=== PATIENT | male | born 1985 | race Caucasian/White ===

== ENCOUNTER 2020-04-11 07:12 | Emergency (ER) | payer SELFPAY ==
[~2020-04-11] VITALS: Ht 182.9 cm; Wt 129.5 kg
[2020-04-11 07:12] VITALS: BP 168/83
[2020-04-11] MEDS ORDERED: DICL75TA2 PO (07:26)
[2020-04-11] MEDS ORDERED: CYCL10TA9 PO (07:26)
--- NOTE | 2020-04-11 07:26 | ED General ---
General Stated Complaint: LT HAND/SHOULDER PAIN Source of Information: Patient, EMS Notes Reviewed, RN/, RN Notes Reviewed History of Present Illness Date Seen by Provider: Apr 11, 2020 Time Seen by Provider: 07:10 Initial Comments This patient is a 34-year-old male presents to the emergency department complaining of pain running down the posterior portion of his left arm and burning to his left. Patient states he has chronic issues his neck and arm. 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 Patient states he does hold a lot left hand. Patient has significant tightness of the trapezius muscles the left side and patient states with pressure trigger point appears to relieve some of the tension. Did discuss at length with patient about chronic conditions. Hand radiculopathy. Patient states understanding. Patient be given prescription for nonsteroidal pain medication Flexeril. Patient instructed to follow up with his primary care physician. May benefit from an MRI outpatient. Timing/Duration: 2-3 Days Severity: Mild Associated Systoms: Denies Symptoms; No Chest Pain, No Cough, No Diaphoresis, No Fever/Chills, No Headaches, No Loss of Appetite, No Malaise, No Nausea/Vomiting, No Rash, No Seizure, No Shortness of Air, No Syncope, No Weakness, No Other Allergies and Home Medications Patient Home Medication List Home Medication List Reviewed: Yes Review of Systems Review of Systems Constitutional: No no symptoms reported; see HPI; No chills, No diaphoresis, No dizziness, No fever, No malaise, No weakness, No weight gain, No weight loss, No other EENTM: No see HPI, No no symptoms reported, No ear discharge, No hearing loss, No ear pain, No blurred vision, No double vision, No eye pain, No tearing, No vision loss, No dental problems, No hoarseness, No mouth pain, No mouth swelling, No epistaxis, No nose congestion, No nose pain, No throat pain, No throat swelling, No other Respiratory: No no symptoms reported, No see HPI, No cough, No dyspnea on exertion, No hemoptysis, No orthopnea, No phlegm, No short of breath, No stridor, No wheezing, No other Cardiovascular: No no symptoms reported, No see HPI, No chest pain, No edema, No Hx of Intervention, No palpitations, No syncope, No vascular heart diseas, No other Gastrointestinal: No RUQ, No LUQ, No RLQ, No LLQ, No no symptoms reported, No see HPI, No abdominal pain, No constipation, No diarrhea, No dysphagia, No hematemesis, No heartburn, No jaundice, No loss of appetite, No melena, No nausea, No vomiting, No other Genitourinary: No no symptoms reported, No see HPI, No decreased output, No discharge, No dysuria, No frequency, No hematuria, No hesitancy, No incontinence, No nocturia, No pain, No other Musculoskeletal: No no symptoms reported, No see HPI, No back pain, No gout, No joint pain, No joint swelling, No muscle pain, No muscle stiffness, No muscle cramps, No muscle twitching, No muscle weakness, No neck pain, No other Skin: No no symptoms reported, No see HPI, No change in color, No change in hair/nails, No dryness, No hx of skin cancer, No lesions, No lumps, No pruritus, No rash, No other Psychiatric/Neurological: See HPI, Paresthesia, Tingling, Other (patient describes radiculopathy) All Other Systems Reviewed Negative Unless Noted: Yes Past Kiirzst-Siciqf-Fgqoxt Hx Patient Social History Recent Foreign Travel: No Contact w/Someone Who Travel: No Physical Exam Vital Signs Capillary Refill : Height, Weight, BMI Height: '" Weight: lbs. oz. kg; BMI Method: General Appearance: No Apparent Distress, WD/WN Neck: Full Range of Motion, Normal Inspection, Non Tender, Supple Respiratory: Chest Non Tender, Lungs Clear, Normal Breath Sounds, No Accessory Muscle Use, No Respiratory Distress Cardiovascular: Regular Rate, Rhythm, No Edema, No Gallop, No JVD, No Murmur, Normal Peripheral Pulses Gastrointestinal: Normal Bowel Sounds, No Organomegaly, No Pulsatile Mass, Non Tender, Soft Back: Normal Inspection, No CVA Tenderness, No Vertebral Tenderness Extremity: Normal Capillary Refill, Normal Inspection, Normal Range of Motion, Non Tender, No Calf Tenderness, No Pedal Edema Neurologic/Psychiatric: Alert, Oriented x3, No Motor/Sensory Deficits, Normal Mood/Affect Skin: Normal Color, Warm/Dry Progress/Results/Core Measures Suspected Sepsis SIRS Temperature: Pulse: Respiratory Rate: Blood Pressure / Mean: Results/Orders Vital Signs/I&O Capillary Refill : Progress Note : Time: 07:23 Progress Note This patient is a 34-year-old male presents to the emergency department complaining of pain running down the posterior portion of his left arm and burning to his left. Patient states he has chronic issues his neck and arm. 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 Patient states he does hold a lot left hand. Patient has significant tightness of the trapezius muscles the left side and patient states with pressure trigger point appears to relieve some of the tension. Did discuss at length with patient about chronic conditions. Hand radiculopathy. Patient states understanding. Patient be given prescription for nonsteroidal pain medication Flexeril. Patient instructed to follow up with his primary care physician. May benefit from an MRI outpatient. Alternate heat and ice to the neck area as instructed. Try avoid extended work with chainsaw that heavy material left side. Follow-up with your primary care physician in 2-3 days. If not improved. May benefit from an outpatient MRI. Departure Impression Primary Impression: Radiculopathy affecting upper extremity Disposition: 01 HOME, SELF-CARE Condition: Stable Departure-Patient Inst. Decision time for Depature: 07:24 Referrals: NO,LOCAL PHYSICIAN (PCP) Primary Care Physician Patient Instructions: Radiculopathy (DC), Neck Stretches Add. Discharge Instructions: Alternate heat and ice to the neck area as instructed. Try avoid extended work with chainsaw that heavy material left side. Follow-up with your primary care physician in 2-3 days. If not improved. May benefit from an outpatient MRI. Scripts Diclofenac Sodium (Diclofenac Sodium) 75 Mg Tablet. 75 MG PO BID for 10 Days, #20 TAB 0 Refills Prov: AURELIO ROY MD 04/11/20 Cyclobenzaprine HCl (Cyclobenzaprine HCl) 10 Mg Tablet 10 MG PO Q8H PRN for SPASMS, #15 TAB 0 Refills Prov: AURELIO ROY MD 04/11/20 AURELIO ROY MD Apr 11, 2020 07:26
== END 2020-04-11 07:38 | disposition home or self-care (01) ==
LOC: ER FS 07:14
DX: M54.12 Radiculopathy, cervical region (principal)
CPT/HCPCS: 99282